=== PATIENT | male | born 1980 | race Hispanic/Latino ===

== ENCOUNTER 2017-07-18 11:29 | Emergency (ER) | payer MEDICAID ==
[2017-07-18 11:37] VITALS: TEMP 97.6
--- NOTE | 2017-07-18 11:55 | C.PDOC ---
History Of Present Illness 36 y/o male with a hx of herniated discs, c/o lower back pain for 1 week. Patient reports lifting heavy objects at work. [place] worse with movement. Patient had a previous hx of a herniated disc from a previous accident. Patient denies direct trauma, saddle anesthesia, or urinary symptoms. No weakness or numbness. Time Seen by Provider: 07/18/17 11:39 Chief Complaint (Nursing): Back Pain History Per: Patient History/Exam Limitations: no limitations Onset/Duration Of Symptoms: Days Current Symptoms Are (Timing): Still Present Quality Of Discomfort: "Pain" Severity: Mild Previous Symptoms: Prior Injury Associated Symptoms: denies: New Weakness, New Numbness Exacerbating Factor(s): Movement Recent travel outside of the [place]: No Additional History Per: Patient Past Medical History Reviewed: Historical Data, Nursing Documentation, Vital Signs Vital Signs: Last Vital Signs Temp 97.6 F 07/18/17 11:33 Pulse 82 07/18/17 12:17 Resp 20 07/18/17 12:17 BP 130/80 07/18/17 12:17 Pulse Ox 99 07/18/17 12:17 - Medical History PMH: Back Problems Family History: States: Unknown Family Hx - Social History Hx Alcohol Use: No Hx Substance Use: No Review Of Systems Except As Marked, All Systems Reviewed And Found Negative. Constitutional: Negative for: Other (trauma, saddle anesthesia) Genitourinary: Negative for: Frequency, Incontinence Musculoskeletal: Positive for: Back Pain (Lower back) Neurological: Negative for: Weakness, Numbness Physical Exam - Physical Exam Appears: Non-toxic, No Acute Distress Skin: Warm, Dry Head: Atraumatic, Normacephalic Back: No Vertebral Tenderness, Paraspinal Tenderness, No Straight Leg Raising, No Other (Step-off deformity, saddle anesthesia) Extremity: Normal ROM (x4) Pulses: Left Dorsalis Pedis: Normal, Right Dorsalis Pedis: Normal Neurological/Psych: Oriented x3, Normal Motor, Normal Sensation, Other (No focal deficit) Gait: Steady ED Course And Treatment O2 Sat by Pulse Oximetry: 100 (RA) Pulse Ox Interpretation: Normal Medical Decision Making Medical Decision Making: msk pain. Plans: * Flexeril * Toradol pt declines any further obs/reassessment after pain meds. asking for dc Disposition - Disposition Referrals: [facility] [Outside] [facility] [Outside] [facility] [Outside] Disposition: HOME/ ROUTINE Disposition Time: 11:50 Condition: STABLE Additional Instructions: please see specialist. return to er with worsening symptoms or concerns. Prescriptions: Cyclobenzaprine [Cyclobenzaprine HCl] 10 mg PO DAILY PRN #7 tab PRN Reason: Muscle Spasm Naproxen [Naprosyn] 500 mg PO BID PRN #14 tablet PRN Reason: Pain, Mild (1-3) Instructions: Acute Low Back Pain (ED) Forms: [employer] (Czech) - Clinical Impression Clinical Impression: Low back pain - Scribe Statement The provider has reviewed the documentation as recorded by the Scribe Mejia xiong All medical record entries made by the Scribe were at my direction and personally dictated by me. I have reviewed the chart and agree that the record accurately reflects my personal performance of the history, physical exam, medical decision making, and the department course for this patient. I have also personally directed, reviewed, and agree with the discharge instructions and disposition.
[2017-07-18 12:23] VITALS: BP 130/80; PULSE 82; RESP 20
[2017-07-18 12:33] VITALS: O2SAT 100
== END 2017-07-18 12:29 | disposition home or self-care (01) ==
LOC: C.ER 11:29
DX: M54.5 Low back pain (principal)
CPT/HCPCS: 96372; 99283; J1885